=== PATIENT | male | born 1970 | race Caucasian/White ===

== ENCOUNTER 2021-08-09 11:01 | Emergency (ER) | payer OTHER ==
[~2021-08-09] VITALS: Ht 172.7 cm; Wt 93.0 kg
--- NOTE | 2021-08-09 11:01 | NUR ---
PT BIB SELF C/O CHEMICAL SMOKE INHALATION YESTERDAY. PT IS AAOX4, NOT IN RESPIRATORY DISTRESS, V/S STABLE, KEPT RESTED AND COMFORTABLE. WILL CONTINUE TO MONITOR.
--- NOTE | 2021-08-09 11:20 | NUR ---
AT BEDSIDE FOR EVAL.
[2021-08-09] MEDS ORDERED: ACETAMINOPHEN ES 500 MG TABLET PO ONE (11:30)
[2021-08-09] MEDS ORDERED: MAG HYDROX/AL HYDROX/SIMETH 30 ML UDC PO ONE (11:30)
[2021-08-09] MEDS ORDERED: MAG HYDROX/AL HYDROX/SIMETH 30 ML UDC ONE (11:40)
--- NOTE | 2021-08-09 11:40 | NUR ---
PT IS WHEELED TO RADIOLOF[facility] FOR NECK XRAY.
[2021-08-09] MEDS ORDERED: ACETAMINOPHEN ES 500 MG TABLET ONE (11:41)
[2021-08-09] MEDS ORDERED: IV NS 0.9% 1,000 ML IV ONE (13:00)
--- NOTE | 2021-08-09 13:00 | NUR ---
PT IV LINE ESTABLISHED BLOOD DRAWN AND SENT TO LAB.
[2021-08-09 13:01] LABS: BASOPHILS % (AUTO) 0.7 % (0.0-2.0); EOSINOPHILS % (AUTO) 1.3 % (0.0-6.0); HEMATOCRIT 44 % (39-51); LYMPHOCYTES # (AUTO) 2.7 K/uL (0.8-4.8); LYMPHOCYTES % (AUTO) 38.4 % (20.0-44.0); MEAN CORPUSCULAR HGB CONC 34 g/dl (31.0-36.0); MEAN CORPUSCULAR VOLUME 91 fL (80-96); MONOCYTES # (AUTO) 0.5 K/uL (0.1-1.30); MONOCYTES % (AUTO) 6.3 % (2.0-12.0); NEUTROPHILS # (AUTO) 3.8 K/uL (1.8-8.9); NEUTROPHILS % (AUTO) 53.3 % (43.0-81.0); PLATELET COUNT (AUTO) 168 K/uL (150-450); WHITE BLOOD COUNT (AUTO) 7.1 K/uL (4.3-11.0)
[2021-08-09 13:11] LABS: CALCIUM, SERUM 8.5 mg/dL (8.5-10.1); POTASSIUM 3.9 mmol/L (3.5-5.1)
[2021-08-09] MEDS ORDERED: IV NS 0.9% 250 ML IV ONE (13:19)
[2021-08-09] MEDS ORDERED: IOHEXOL-300 100 ML VIAL IV ONE (13:19)
[2021-08-09] MEDS ORDERED: CT SWABBABLE VALVE TRANS SET 1 EA INFUS.SET MC ONE (13:20)
[2021-08-09] MEDS ORDERED: DEXAMETHASONE SOD PHOSPHATE 10 MG/ML VIAL ONE (14:41)
--- NOTE | 2021-08-09 14:47 | NUR ---
IV removed. Catheter intact and site benign. Pressure and 4x4 applied to site. No bleeding noted. Patient discharged to home in stable condition. Written and verbal after care instructions given. Patient verbalizes understanding of instruction.
[2021-08-09 14:48] VITALS: BP 130/74
[2021-08-09] MEDS ORDERED: DEXAMETHASONE SOD PHOSPHATE 10 MG/ML VIAL IV ONE (15:00)
== END 2021-08-09 14:48 | disposition home or self-care (01) ==
LOC: ER 11:04
DX: J04.0 Acute laryngitis (principal); J02.9 Acute pharyngitis, unspecified; E11.9 Type 2 diabetes mellitus without complications
CPT/HCPCS: 36415; 70360; 70491; 80048; 85025; 96360; 99285; J1100; J7030; J7050; Q9967

== ENCOUNTER 2022-02-01 13:40 | Emergency (ER) | payer OTHER ==
[~2022-02-01] VITALS: Ht 172.7 cm; Wt 94.3 kg
[2022-02-01 13:53] VITALS: BP 135/76
[2022-02-01] MEDS ORDERED: MUPI22OI2 TP (14:05)
[2022-02-01] MEDS ORDERED: CEPH500C2 PO (14:05)
[2022-02-01] MEDS ORDERED: SULF1TAB48 PO (14:05)
--- NOTE | 2022-02-01 14:12 | NUR ---
Patient discharged to home in stable condition. Written and verbal after care instructions given. Patient verbalizes understanding of instruction but did not sign d/c papers.
== END 2022-02-01 14:14 | disposition home or self-care (01) ==
LOC: ER 13:47
DX: L60.0 Ingrowing nail (principal); L08.9 Local infection of the skin and subcutaneous tissue, unspecified; E11.9 Type 2 diabetes mellitus without complications